=== PATIENT | male | born 1980 | race Hispanic/Latino ===

== ENCOUNTER 2021-10-05 00:18 | Emergency (ER) | payer OTHER ==
[~2021-10-05] VITALS: Ht 165.1 cm; Wt 63.5 kg
[2021-10-05 00:28] VITALS: BP 112/65
[2021-10-05] MEDS ORDERED: SULF1TAB42 PO (09:59)
== END 2021-10-05 02:40 | disposition left against medical advice (07) ==
LOC: EDH 00:18
DX: R22.0 Localized swelling, mass and lump, head (principal); Z53.21 Procedure and treatment not carried out due to patient leaving prior to being seen by health care provider

== ENCOUNTER 2021-10-05 07:43 | Emergency (ER) | payer OTHER ==
[~2021-10-05] VITALS: Ht 167.6 cm; Wt 63.5 kg
[2021-10-05] MEDS ORDERED: SULF1TAB42 PO (09:59)
[2021-10-05] MEDS ORDERED: SULFAMETHOX-TMP DS 800/160 TAB PO SCH (10:00)
[2021-10-05 10:03] VITALS: BP 122/68
== END 2021-10-05 10:09 | disposition home or self-care (01) ==
LOC: EDH 07:43 → EEVIPCON 07:43 → EDH 10:09
DX: L02.821 Furuncle of head [any part, except face] (principal)

== ENCOUNTER 2021-12-10 09:28 | Emergency (ER) | payer OTHER ==
[~2021-12-10] VITALS: Ht 167.6 cm; Wt 63.5 kg
[~2021-12-10 09:28] MED LIST: SULF1TAB42 PO
[2021-12-10 09:29] VITALS: BP 115/67
[2021-12-10] MEDS ORDERED: OCTYL 2-CYANOACRYLATE 1 EACH TP ONE (09:40)
[2021-12-10] MEDS ORDERED: LIDOCAINE HCL-MPF 2% 5ML VIAL ONE (09:43)
[2021-12-10] MEDS ORDERED: LIDOCAINE HCL MPF 1% 5ML VIAL ONE (09:49)
[2021-12-10] MEDS ORDERED: TETANUS/DIPHTHERIA TOXOID [ADULT] 0.5 ML VIAL IM ONE ×2 (10:15→10:30)
[2021-12-10] MEDS ORDERED: IBUPROFEN 400 MG TABLET ONE (10:15)
[2021-12-10] MEDS ORDERED: AMOX-426 PO (10:19)
[2021-12-10] MEDS ORDERED: IBUP-2070 PO (10:19)
[2021-12-10] MEDS ORDERED: PERID15L MM (10:20)
[2021-12-10] MEDS ORDERED: IBUPROFEN 400 MG TABLET PO ONE (10:30)
== END 2021-12-10 12:50 | disposition home or self-care (01) ==
LOC: EDH 09:28
DX: S01.511A Laceration without foreign body of lip, initial encounter (principal); S20.211A Contusion of right front wall of thorax, initial encounter; X58.XXXA Exposure to other specified factors, initial encounter; Y93.89 Activity, other specified; Y92.89 Other specified places as the place of occurrence of the external cause; Y99.8 Other external cause status
CPT/HCPCS: 40650; 71046; 90471; 90714; 99284; J3490

== ENCOUNTER 2022-04-06 10:18 | Emergency (ER) | payer OTHER ==
[~2022-04-06] VITALS: Ht 160 cm; Wt 61.2 kg
[~2022-04-06 10:18] MED LIST changes: +AMOX-426 PO; +IBUP-2070 PO; +PERID15L MM
[2022-04-06 10:28] VITALS: BP 128/102
[2022-04-06] MEDS: IBUPROFEN 600 MG TABLET PO ONE (11:31)
[2022-04-06] MEDS: IBUPROFEN 600 MG TABLET ONE (11:31)
[2022-04-06] MEDS ORDERED: ACET-2079 PO (12:34)
[2022-04-06] MEDS ORDERED: IBUP-2070 PO (12:34)
[2022-04-06] MEDS ORDERED: AMOX1TAB16 PO (12:34)
[2022-04-06] MEDS: FLUORESCEIN SODIUM 1 STRIP STRIP ONE (12:40)
[2022-04-06] MEDS: TETRACAINE HCL 0.5% 4 ML OPHTH SOLN ONE (12:40)
== END 2022-04-06 12:46 | disposition home or self-care (01) ==
LOC: EDH 10:18
DX: S02.2XXA Fracture of nasal bones, initial encounter for closed fracture (principal); Z79.1 Long term (current) use of non-steroidal anti-inflammatories (NSAID); Y04.2XXA Assault by strike against or bumped into by another person, initial encounter; Y93.89 Activity, other specified; Y92.89 Other specified places as the place of occurrence of the external cause; Y99.8 Other external cause status
CPT/HCPCS: 70450; 70486

== ENCOUNTER 2022-05-05 06:29 | Emergency (ER) | payer MEDICAID ==
[~2022-05-05] VITALS: Ht 167.6 cm; Wt 57.2 kg
[~2022-05-05 06:29] MED LIST changes: +ACET-2079 PO; +AMOX1TAB16 PO
[2022-05-05 06:33] VITALS: BP 139/80
[2022-05-05 06:57] LABS: APPEARANCE,URINE CLEAR (CLEAR); BILIRUBIN,URINE NEGATIVE (NEGATIVE); COLOR,URINE LIGHT-YELLOW (YELLOW); GLUCOSE, URINE (UA) NEGATIVE (NEGATIVE); KETONES,URINE NEGATIVE (NEGATIVE); LEUKOCYTE ESTERASE ,URINE 250 Leu/uL (NEGATIVE); NITRATE,URINE NEGATIVE (NEGATIVE); OCCULT BLOOD,URINE NEGATIVE (NEGATIVE); PROTEIN,URINE NEGATIVE (NEGATIVE)
[2022-05-05 07:59] LABS: RBC,URINE 0 /HPF (0-1)
[2022-05-05 08:00] LABS: BACTERIA,URINE Few /HPF (None Seen); SQUAMOUS EPITHELIAL CELL,UR 0-2 /HPF (0-2)
== END 2022-05-05 07:37 | disposition home or self-care (01) ==
LOC: EDH 06:29
DX: R30.9 Painful micturition, unspecified (principal); Z20.822 Contact with and (suspected) exposure to COVID-19
CPT/HCPCS: 81001; 87088; 87486; 87797